=== PATIENT | female | born 1990 | race Caucasian/White ===

== ENCOUNTER 2016-06-21 13:43 | Emergency (ER) | payer OTHER ==
[~2016-06-21 13:43] MED LIST: ACYCLOVIR IV; AMOXICILLIN500 M1 PO; ANTIOBIOTIC; AUGMENTIN PO; LACRI-LUBE NP OI1 UD OD; NAPROSYN500 MG PO; NIFEREX-150150 MG PO; PRENATAL VITAMI1 TA3 PO; VICODIN 5/500 T1 TAB PO
== END 2016-06-21 14:25 | disposition home or self-care (01) ==
LOC: CFTX 13:43 → CED 13:43 → CFTX 14:00
DX: R59.1 Generalized enlarged lymph nodes (principal); F17.210 Nicotine dependence, cigarettes, uncomplicated
CPT/HCPCS: 99283